=== PATIENT | female | born 2000 ===

== ENCOUNTER 2021-06-06 21:42 | Inpatient (IN) | payer OTHER ==
[2021-06-06] MEDS ORDERED: hydrOXYzine Pamoate 25 MG Cap PO ONE (22:00)
[2021-06-06] MEDS ORDERED: Acetaminophen 500 MG Tab PO ONE (22:00)
[2021-06-07] MEDS ORDERED: Ondansetron 4 MG/2 ML SDV IVPUSH PRN (01:04)
[2021-06-07] MEDS ORDERED: Lidocaine 1% 50 ML MDV INJECT PRN (01:04)
[2021-06-07] MEDS ORDERED: Sodium Chloride 0.9% 2.5 ML Syringe FLUSH PRN (01:04)
[2021-06-07] MEDS ORDERED: Misoprostol 200 MCG Tab PO PRN (01:04)
[2021-06-07] MEDS ORDERED: Methylergonovine 0.2 MG/1 ML Amp IM PRN ×2 (01:04→13:53)
[2021-06-07] MEDS ORDERED: Sodium Chloride 0.9% 20 ML SDV IV PRN (01:04)
[2021-06-07] MEDS ORDERED: Terbutaline 1 MG/ML SDV SUBCUT PRN ×2 (01:04→09:13)
[2021-06-07] MEDS ORDERED: Water For Irrigation,Sterile 1,000 ML Container IRR PRN (01:04)
[2021-06-07] MEDS ORDERED: Carboprost Tromethamine 250 MCG/1 ML Amp IM PRN ×2 (01:04→13:53)
[2021-06-07] MEDS ORDERED: Tranexamic Acid 1,000 MG in Sodium Chloride 0.9% 100 ML IV PRN ×2 (01:04→13:53)
[2021-06-07] MEDS ORDERED: Sodium Chloride 0.9% 10 ML Syringe FLUSH PRN (01:04)
[2021-06-07] MEDS ORDERED: Nalbuphine 10 MG/1 ML Vial IVPUSH PRN (01:04)
[2021-06-07] MEDS ORDERED: Oxytocin/0.9 % Sodium Chloride 30 UNIT/500 ML BAG IV SCH ×3 (01:15→09:15)
[2021-06-07] MEDS: Lactated Ringers 1,000 ML IV SCH ×2 (01:30→09:30)
[2021-06-07] MEDS: Butorphanol 1 MG/ML SDV IVPUSH PRN ×2 (01:53→03:26)
[2021-06-07] MEDS ORDERED: Misoprostol 25 MCG (1/4 of 100 MCG) Tab VAG PRN ×4 (04:00→09:13)
[2021-06-07] MEDS ORDERED: Ropivacaine HCl/PF 100 ML ONE (07:28)
[2021-06-07] MEDS ORDERED: ePHEDrine 50 MG/ML SDV IVPUSH PRN ×2 (07:41)
[2021-06-07] MEDS ORDERED: Ropivacaine HCl/PF 200 MG in Premix Bag 1 BAG EPIDUR SCH (07:45)
[2021-06-07] MEDS ORDERED: Ibuprofen 400 MG Tab PO PRN (13:53)
[2021-06-07] MEDS ORDERED: Misoprostol 200 MCG Tab RECTAL PRN (13:53)
[2021-06-07] MEDS ORDERED: Acetaminophen 500 MG Tab PO PRN (13:53)
[2021-06-07] MEDS ORDERED: Witch Hazel Medicated Pads 40/Jar TOP PRN (13:53)
[2021-06-07] MEDS ORDERED: Lanolin 100% Cream 7 GM Tube TOP PRN (13:53)
[2021-06-07] MEDS ORDERED: Bisacodyl 10 MG Supp RECTAL PRN (13:53)
[2021-06-07] MEDS ORDERED: oxyCODONE 5 MG Tab PO PRN (13:53)
[2021-06-07] MEDS ORDERED: Benzocaine/Menthol 20%-0.5% Spray 78 GM Cannister TOP PRN (13:53)
[2021-06-07] MEDS: Ibuprofen 800 MG Tab PO PRN (14:31)
[2021-06-07] MEDS: Acetaminophen 500 MG Tab PO PRN (20:33)
[2021-06-08] MEDS: Ibuprofen 800 MG Tab PO PRN ×2 (05:31→14:04)
[2021-06-08] MEDS: Acetaminophen 500 MG Tab PO PRN (09:10)
[2021-06-08] MEDS: Docusate Sodium 100 MG Cap PO PRN ×2 (09:12→21:50)
[2021-06-09] MEDS: Docusate Sodium 100 MG Cap PO PRN (08:51)
== END 2021-06-09 15:55 | disposition home or self-care (01) | DRG 807 ==
LOC: MW.OBCHECK 21:42 → MW.OB 21:42 → MW.OBCHECK 06-07 01:03 → MW.OB 06-07 01:04 → OBSVTOIN 06-07 13:53 → MW.OB 06-07 16:36
PROVIDERS: ADMIT Obstetrics & Gynecology; ATTEND Obstetrics & Gynecology
PROC: 10E0XZZ Delivery of Products of Conception, External Approach (ICD-10-PCS; principal; 2021-06-07)
PROC: 0KQM0ZZ Repair Perineum Muscle, Open Approach (ICD-10-PCS; 2021-06-07)
PROC: 10907ZC Drainage of Amniotic Fluid, Therapeutic from Products of Conception, Via Natural or Artificial Opening (ICD-10-PCS; 2021-06-07)
PROC: 0UQMXZZ Repair Vulva, External Approach (ICD-10-PCS; 2021-06-07)
PROC: 3E0R3BZ Introduction of Anesthetic Agent into Spinal Canal, Percutaneous Approach (ICD-10-PCS; 2021-06-07)
PROC: 00HU33Z Insertion of Infusion Device into Spinal Canal, Percutaneous Approach (ICD-10-PCS; 2021-06-07)
DX: O48.0 Post-term pregnancy (principal); Z37.0 Single live birth; O70.1 Second degree perineal laceration during delivery; O69.81X0 Labor and delivery complicated by cord around neck, without compression, not applicable or unspecified; Z20.822 Contact with and (suspected) exposure to COVID-19; Z3A.40 40 weeks gestation of pregnancy
CPT/HCPCS: 01967; 36415; 59025; 85014; 85018; 85027; 86592; 86850; 86900; 86901; A9270-GY; J0595; J2590; J2795; J7120; U0002